=== PATIENT | male | born 1945 | race Caucasian/White ===

== ENCOUNTER 2024-08-20 13:10 | Emergency (ER) | payer MEDICARE, OTHER, SELFPAY ==
[2024-08-20 13:16] VITALS: BP 130/71
--- NOTE | 2024-08-20 14:58 | ED.MUSCINJ ---
HPI-Injury
General
Chief Complaint: Fall
Source: patient
Exam Limitations: none
Time Seen by Provider: 08/20/24 14:14
History of Present Illness-Injury
Initial Injury comments:
79-year-old male presents after trip and fall. Tripped over concrete car stop hitting his head on the sidewalk. He also complains of right shoulder pain. No anticoagulants. No loss of consciousness. He denies neck pain headache blurry vision
nausea vomiting. No other complaints at this
Past History
Past History
ED Past Medical History: Asthma, HTN and Hypercholesterolemia
ED Past Surgical History: Other (Cancer. Skin.)
Social History
Tobacco: Non-smoker
Phy Exam
Physical Exam
Physical Exam:
General: Well appearing male NAD
HEENT: Normocephalic 2.5 cm ragged laceration surrounded by abrasion to the right side of the superior forehead oriented in the vertical direction. Pupils equal round reactive to light
Neurologic exam: Alert and oriented no facial asymmetry normal gait conversing appropriately good strength to the upper and lower extremities
Musculoskeletal exam: The spine is nontender. He is slightly tender to the anterior lateral aspect of the shoulder on the right side without any deformity. He has good active and passive range of motion
Skin: Positive for the above-mentioned laceration
Injury Course
Orders/Labs/Results
Orders:
Orders
08/20/24 13:24
CR Shoulder, Trauma - Right Urgent
Comment:
Reason For Exam: pain/injury
08/20/24 13:28
CT Head W/o Iv Contrast Urgent
Comment:
Reason For Exam: head injury
Procedures
Laceration Closure
Right Forehead:
Status of Wound: clean
Description of Wound Edges: ragged and surrounded by abrasion
Preparation: cleaned with saline
Anesthesia: 1% Lidocaine with epi
Revision/Debridement: routine- no revision and minor revision
Wound exploration: explored to base- no FB
Type of Closure: single layer closure and interrupted sutures
Skin Closure Material: 5-0 prolene
Number of sutures: 6
MDM/Problems Addressed
Differential Diagnosis Includes:
Patient with mechanical fall with right shoulder pain and head injury. No cervical spine tenderness on exam. CT of the head ordered through triage which was negative for acute traumatic injury. X-ray of right shoulder also reviewed and is
negative. The wound was copiously irrigated with saline and closed with 5-0 Prolene sutures. A dressing was applied a sling was given. Stable for discharge. Suspect underlying shoulder strain
*Critical Care Note
Total Time (30-74mins, 75-104mins- exclusive of procedures): Not Applicable
ED Attending Note
-
Portions of this chart may have been created with voice recognition software.� Occasional wrong word or��sound alike� substitutions may have occurred due to the inherent limitations of voice recognition software.
Discharge Plan
Departure
Patient Disposition: Home (Routine Discharge)
Date of Disposition: 08/20/24
Time of Disposition: 15:03
Patient with high blood pressure during this ER visit?: No
Discharge Problem:
Laceration, Muscle strain of right shoulder
Instructions: Laceration Repair With Stitches (DC)
Prescriptions:
No Action
atorvastatin 40 MG tablet
40 mg PO DAILY
fluticasone propion-salmeterol [Advair Diskus] 1 DISK blister with device
1 puff inhalation PRN PRN (Reason: Allergies)
Patient Comments:
seasonal for allergies
metoprolol succinate 100 MG tablet extended release 24 hr
100 mg PO DAILY
tamsulosin 0.4 MG capsule
0.4 mg PO DAILY
ibuprofen 600 MG tablet
600 mg PO Q8HPRN PRN (Reason: mild pain)
amlodipine-benazepril 1 EACH capsule
1 ea PO DAILY
Patient Comments:
unknown dose as of 10/27/21
acetaminophen 325 MG tablet
650 mg PO Q4HPRN PRN (Reason: mild pain) Qty: 1 0RF
aspirin 81 MG tablet,chewable
81 mg PO DAILY
cannabidiol [Epidiolex] 1 UNIT solution
1 unit PO PRN PRN (Reason: PAIN)
tramadol 50 MG tablet
50 mg PO Q6HPRN PRN (Reason: severe pain/breakthrough pain) Qty: 5 0RF
Referrals:
Chago Witt MD [Family Provider] -
Activity Restrictions/Additional Instructions:
Have sutures removed in 5 to 7 days. You may use ibuprofen or Tylenol for pain. Use sling for support for the shoulder. Return if worse otherwise follow-up with your family
Interventions
Interventions:
*Risk Screen - Suicide Last Done: 08/20/24 13:16
*Neglect/Abuse Screening Last Done: 08/20/24 13:16
*ED COVID-19 Vaccine History Last Done: 08/20/24 13:16
ED-Musculoskeletal Assessment Last Done: 08/20/24 13:55
ED- Neurological Assessment Last Done: 08/20/24 13:55
ED-Skin Assessment Last Done: 08/20/24 13:55
Discharge Date and Time
Print Language: SYRIAN
[2024-08-20 15:25] VITALS: BP 119/68
[2024-08-20 15:26] VITALS: BP 119/68
== END 2024-08-20 15:27 | disposition home or self-care (01) ==
LOC: EMR 13:10
PROVIDERS: EMERGENCY PHYSICIAN Emergency Medicine; FAMILY PHYSICIAN Internal Medicine Cardiovascular Disease
DX: S09.90XA Unspecified injury of head, initial encounter (principal); S46.911A Strain of unspecified muscle, fascia and tendon at shoulder and upper arm level, right arm, initial encounter; S01.81XA Laceration without foreign body of other part of head, initial encounter; W01.198A Fall on same level from slipping, tripping and stumbling with subsequent striking against other object, initial encounter
CPT/HCPCS: 99284; 12011; 70450; 73030

== ENCOUNTER 2024-10-25 06:23 | Day surgery (SDC) | payer MEDICARE, OTHER, SELFPAY | END 2024-10-25 10:05 | disposition home or self-care (01) | LOC: GI 06:23 | PROVIDERS: ATTENDING PHYSICIAN Internal Medicine | DX: Z12.11 Encounter for screening for malignant neoplasm of colon (principal); K57.30 Diverticulosis of large intestine without perforation or abscess without bleeding; K52.9 Noninfective gastroenteritis and colitis, unspecified; Z98.0 Intestinal bypass and anastomosis status; Z85.038 Personal history of other malignant neoplasm of large intestine | CPT/HCPCS: 45385; 88305 ==